=== PATIENT | female | born 1945 | race Caucasian/White ===

== ENCOUNTER 2025-07-24 10:09 | Outpatient (REF) | payer OTHER, MEDICAID, SELFPAY ==
--- OUTSIDE RECORDS SUMMARY | 2024-09-22 05:00 | XMS_ITS ---
[facility] Organization [facility] Address [address] [place] [address] Care Team Providers Care Rn Resource Nurse Name Role Phone TyroneAnayeli polo Primary Care Provider Unavailab Salma Cope Unavailable [phone] Allergies Allergen (clinical drug ingredient) Drug/Non Drug Allergy documented on EMR Reaction Allergy Type Onset Date Status Novocain Unknown Drug Allergy Active Penicillin Unknown Drug Allergy Active Medications Medication SIG (Take, Route, Frequency, Duration) Notes Start Date End Date Status amLODIPine Besylate Active hydroCHLOROthiazide 12.5 MG 1 tablet in the morning Orally Once a day Active oxyBUTYnin Chloride Active Aspirin Adult Low Strength Active Janumet XR 50-1000 MG 2 tablets with evening meal Orally Once a day; Duration: 30 day(s) Active Allergy Active Omeprazole Active Albuterol Sulfate Ac tive Fiber Active Zithromax Z-Anand 250 MG 2 tablets on the first day, then 1 tablet daily for 4 days Orally Once a day; Duration: 5 day(s) 04/16/2015 Not-Taking Januvia 25 MG 1 tablet Orally Once a day Not-Taking Prevacid Not-Taking metFORMIN HCl Not-Ta anthony Acetaminophen-Codeine 300-30 MG 1 tablet as needed Orally every 6 hrs; Duration: as needed 04/16/2015 Not-Taking Clindamycin HCl 300 MG 1 capsule Orally every 8 hrs; Duration: 5 day(s) 11/23/2017 Not-Taking CeleBREX Not-Taking Cyproheptadine HCl N ot-Taking Extra-Depth Diabetic Shoes with 3 Pair Custom heat-molded multi-density innersoles . for 1 year . Dx:sascha ty; Duration: . 04/03/2014 Not-Taking zzzExtra Depth Orthopedic Shoes (1 Pair) with Customized Heat Molded Multidensity Innersoles (3 Pair) . . . Dx: NIDDM (E11.9), Hammertoe Foot Deformity (M20.41,M20.42), Preulcerative Skin Lesion(s) (L85.1); Duration: . 09/17/2015 Not-Taking Extra Depth Orthopedic Shoes (1 Pair) with Customized Heat Molded Multidensity Innersoles (3 Pair) as directed Dx: NIDDM (E11.9), Hammertoe Foot Deformity (M20.41,M20.42), 02/23/2017 Not-Taking dilTIAZem HCl ER 240 MG 1 capsule Orally Not-Taking Extra Depth Orthopedic Shoes (1 Pair) with Customized Heat Molded Multidensity Innersoles (3 Pair) as directed Dx: NIDDM/Polyneuropathy (E11.42), Hammertoe Foot Deformity (M20.41,M20.42), Preulcerative Skin Lesion(s) (L85.1 04/27/2023 Not-Taking Vitamin D Not-Taking Extra-Depth Diabetic Shoes with 3 Pair Custom heat-molded multi-density innersoles Not-Taking Extra Depth Orthopedic Shoes (1 Pair) with Customized Heat Molded Multidensity Innersoles (3 Pair) as directed Dx: NIDDM/Polyneuropathy (E11.42), Hammertoe Foot Deformity (M20.41,M20.42), Preulcerative Skin Lesion(s) (L85.1 07/30/2021 Not-Taking Rosuvastatin Calcium 5 MG TAKE ONE TABLE T BY MOUTH EVERY DAY Oral; Duration: 30 Days Active Ezetimibe 10 MG 1 tablet Orally Once a day Not-Taking Cetirizine HCl 10 MG 1 tablet Orally Onc e a day Not-Taking Encounters Encounter Location Date Provider Diagnosis [facility] [place] [address] 09/22/2024 Salma Gómez Plan Of Treatment Next Appt Details Provider Name:Salma Gómez , 08/14/2025 09:00:00 AM, [place] [place] [address], [address], Provider Name:Salma Gómez , 10/23/2025 09:30:00 AM, [address] [facility], [place], [address], Progress Notes * Charanjit FIELDSHersonOB:1945 (79 yo F)Acc No.[id number]:09/22/2024 Progress Note Patient: Fiona OLIVEIRA Provider: Emmanuel Gómez DPM :1945 A ge:78 Y S ex:Female Date:09/22/2024 Address:[address] [place], [place] [id number] Pcp:Anayeil Chung Subjective: * Chief Complaints: * * Medical History: H ypertension, Diabetic, Aneurysm, Osteoporosis, Mumps, Measles, Hiatal hernia, Chicken pox, Cholesterol, Arthritis. * Medications: T aking Albuterol Sulfate , Taking Fiber , Taking Allergy , Taking Omeprazole , Taking amLODIPine Besylate , Taking hydroCHLOROthiazide 12.5 MG Tablet 1 tablet in the morning Orally Once a day , Taking oxyBUTYnin Chloride , Taking Aspirin Adult Low Strength , Taking Janumet XR 50-1000 MG Tablet Extended Release 24 Hour 2 tablets with evening meal Orally Once a day , Taking Rosuvastatin Calcium 5 MG Tablet TAKE ONE TABLET BY MOUTH EVERY DAY Oral , Not-Taking/PRN Ezetimibe 10 MG Tablet 1 tablet Orally Once a day , Not-Taking/PRN Cetirizine HCl 10 MG Tablet 1 tablet Orally Once a day , Not-Taking/PRN Vitamin D , Not-Taking/PRN dilTIAZem HCl ER 240 MG Capsule Extended Release 24 Hour 1 capsule Orally , Not-Taking/PRN Extra Depth Orthopedic Shoes (1 Pair) with Customized Heat Molded Multidensity Innersoles (3 Pair) as directed Dx: NIDDM/Polyneuropathy (E11.42), Hammertoe Foot Deformity (M20.41,M20.42), Preulcerative Skin Lesion(s) (L85.1 , Not-Taking/PRN Extra Depth Orthopedic Shoes (1 Pair) with Customized Heat Molded Multidensity Innersoles (3 Pair) as directed Dx: NIDDM/Polyneuropathy (E11.42), Hammertoe Foot Deformity (M20.41,M20.42), Preulcerative Skin Lesion(s) (L85.1 , Not-Taking/PRN Extra-Depth Diabetic Shoes with 3 Pair Custom heat-molded multi-density innersoles , Not-Taking/PRN Extra-Depth Diabetic Shoes with 3 Pair Custom heat-molded multi-density innersoles . . for 1 year . Dx:hallux limitus,hammertoes , Not-Taking/PRN zzzExtra Depth Orthopedic Shoes (1 Pair) with Customized Heat Molded Multidensity Innersoles (3 Pair) . . . . Dx: NIDDM (E11.9), Hammertoe Foot Deformity (M20.41,M20.42), Preulcerative Skin Lesion(s) (L85.1) , Not-Taking/PRN Extra Depth Orthopedic Shoes (1 Pair) with Customized Heat Molded Multidensity Innersoles (3 Pair) as directed Dx: NIDDM (E11.9), Hammertoe Foot Deformity (M20.41,M20.42), , Not-Taking/PRN CeleBREX , Not-Taking/PRN Cyproheptadine HCl , Not-Taking/PRN Prevacid , Not-Taking/PRN metFORMIN HCl , Not-Taking/PRN Januvia 25 MG Tablet 1 tablet Orally Once a day , Not-Taking/PRN Acetaminophen-Codeine 300-30 MG Tablet 1 tablet as needed Orally every 6 hrs , Not-Taking/PRN Clindamycin HCl 300 MG Capsule 1 capsule Orally every 8 hrs , Not-Taking/PRN Zithromax Z-Anand 250 MG Tablet 2 tablets on the first day, then 1 tablet daily for 4 days Orally Once a day * Allergies: N ovocain, Penicillin. Objective: * Vitals: Assessment: Plan: * Treatment: * Images: * The named appointment provid er may or may not be the originator of this progress note, and it is not deemed complete until electronically signed by the appointment provider. Sign off status: Pending * Provider: Emmanuel Gómez DPM Date: 11/23/2023 Generated for Shelli roberts/Estiven/Betsy on: 12:06 PM EDT
--- OUTSIDE RECORDS SUMMARY | 2024-11-17 09:15 | XMS_ITS ---
Author Organization [facility] Address [address] [place] [address] Care Team Providers Care Special Effects Person Name Role Phone Anayeli Chung Primary Care Provider Unavailab Salma Cope [phone] Encounters Encounter Location Date Provider Diagnosis [address] [address] 11/17/2024 Salma Gómez Plan Of Treatment Next Appt Details Provider Name:Salma A Rico , 08/14/2025 09:00:00 AM, [address] [place] [address] [place], [address], Provider Name:Salma A Rico , 10/23/2025 09:30:00 AM, [address] [place] [address] [place], [address], Progress Notes * Caio FIELDSOB:1945 (79 yo F)Acc No.[id number]:11/17/2024 Progress Note Patient: Fiona OLIVEIRA Provider: Emmanuel Gómez DPM :1945 A ge:78 Y S ex:Female Date:11/17/2024 Address:[address] [place], [place] [phone] Pcp:Anayeli Chung Subjective: * Chief Complaints: * * Medical History: Objective: * Vitals: Assessment: Plan: * Treatment: * Images: * The named appointment provid er may or may not be the originator of this progress note, and it is not deemed complete until electronically signed by the appointment provider. Sign off status: Pending * Provider: Emmanuel Gómez DPM Date: 0 11/17/2024 Generated for Shelli roberts/Estiven/Betsy on: 12:06 PM EDT
--- OUTSIDE RECORDS SUMMARY | 2025-07-24 12:06 | XMS_ITS | Encounter Summary ---
Author Organization [facility] Address [address] [place] [address] Care Team Providers Care Underground Distribution Engineer Name Role Phone Denzel Bettencourt MD Primary Care Provider [phone] Encounter Details Date Type Department Care Team (Late st Contact Info) Description 12/03/2024 Lab Requisition [facility] - Main Lab [address] [facility] [place] [address] Jared Villanueva MD [address] [place] [address], [phone] Nonrheumatic aortic (valve) stenosis Social History Tobacco Use Types Packs/Day Years Used Date Smoking Tobacco: Former Cigarettes Q uit: 12/30/2006 Smokeless Tobacco: Never Alcohol Use Standard Drinks/Week Comments No 0 (1 standard drink = 0.6 oz pur e alcohol) Comments Unknown Sex and Gender Information Value Date Recorded Sex Assigned at Female 12/19/2024 12:38 PM EST Legal Sex Female 3:26 AM EST Gender Identity Female 12/19/2024 12:38 PM EST Sexual Orientation Choose not to disclose 2024 12:38 PM EST documented as of this encounter Plan of Treatment Not on file documented as of this encounter Visit Diagnoses Diagnosis Nonrheumatic aortic (valve) stenosis documented in this encounter Additional Health Concerns Infection Onset Date Last Indicated Resolved Time Respiratory Rule-Out 12/19/2024 12/19/2024 025 11:46 AM EST COVID-19 Rule-Out 12/19/2024 12/19/2024 12/19/2024 11:46 AM EST documented as of this encounter Care Teams Underground Distribution Engineer Relationship Specialty Start Date End Date Denzel Bettencourt MD [address] [place] [phone] PCP - General Internal Medicine 06/12/22 documented as of this encounter
--- OUTSIDE RECORDS SUMMARY | 2025-07-24 12:06 | XMS_ITS | Patient Health Record ---
[facility] eliana Shelburn Address [address] [place] [address] Care Team Providers Care Core Checker Name Role Phone Anayeli Chung Primary Care Provider Unavailab Salma Cope Unavailable [phone] Allergies Allergen (clinical drug ingredient) Drug/Non Drug Allergy documented on EMR Reaction Allergy Type Onset Date Status Novocain Unknown Drug Allergy Active Penicillin Unknown Drug Allergy Active Reason For Referral Diagnosis 1 Achilles tendinitis, left leg (M76.62) Referring Provider First Name Anayeli Referring Provider Last Name Sheldon [facility] Referred Provider Salma Gómez Referred Address [address] [facility],[place],[address], Referred Provider Specialty Podiatry Referral Priority Routine Medications Medication SIG (Take, Route, Frequency, Duration) Notes Start Date End Date Status Cyproheptadine HCl N ot-Taking Janumet XR 50-1000 MG 2 tablets with evening meal Orally Once a day; Duration: 30 day(s) Active metFORMIN HCl Not-Ta anthony Aspirin Adult Low Strength Active Prevacid Not-Taking oxyBUTYnin Chloride Active Extra Depth Orthopedic Shoes (1 Pair) with Customized Heat Molded Multidensity Innersoles (3 Pair) Dx: NIDDM/Polyneuropathy (E11.42), Hammertoe Foot Deformity (M20.41,M20.42), Preulcerative Skin Lesion(s) (L85.1); Duration: 365 days 04/06/2025 Active Acetaminophen-Codeine 300-30 MG 1 tablet as needed Orally every 6 hrs; Duration: as needed 04/16/2015 Not-Taking Rosuvastatin Calcium 5 MG TAKE ONE TABLE T BY MOUTH EVERY DAY Oral; Duration: 30 Days Active Januvia 25 MG 1 tablet Orally Once a day Not-Taking Fiber Active Cetirizine HCl 10 MG 1 tablet Orally Onc e a day Not-Taking Zithromax Z-Anand 250 MG 2 tablets on the first day, then 1 tablet daily for 4 days Orally Once a day; Duration: 5 day(s) 04/16/2015 Not-Taking Albuterol Sulfate Ac tive Ezetimibe 10 MG 1 tablet Orally Once a day Not-Taking Clindamycin HCl 300 MG 1 capsule Orally every 8 hrs; Duration: 5 day(s) 11/23/2017 Not-Taking Omeprazole Active dilTIAZem HCl ER 240 MG 1 capsule Orally Not-Taking Allergy Active Vitamin D Not-Taking hydroCHLOROthiazide 12.5 MG 1 tablet in the morning Orally Once a day Active CeleBREX Not-Taking amLODIPine Besylate Active Extra-Depth Diabetic Shoes with 3 Pair Custom heat-molded multi-density innersoles . for 1 year . Dx:sascha ty; Duration: . 04/03/2014 Not-Taking Immunizations Vaccine Route Administration Date Status Comme nts Influenza Unknown 06/30/2016 Administered Influenza Unknown 07/23/2017 Administered Influenza Unknown 07/19/2018 Administered Influenza Unknown 07/21/2019 Administered Influenza Unknown 06/14/2020 Administered Influenza Unknown 06/30/2023 Administered Influenza Unknown 08/03/2024 Administered COVID-19 Pfizer BioNTech Vaccine Unknown 07/28/2021 Administered 12/11/20 1st injection 2nd injection 01/01/21 Social History Tobacco Use: Social History Observation Description Date Details (start date - stop date) Never Smoker NA - NA Tobacco use other than smoking: Question Answer Notes Are you an other tobacco user? No Tobacco Control (Standard) Question Answer Notes Tobacco use: Nonsmoker Additional Findings: Tobacco non-user Current no nsmoker AUDIT-C (Standard) Question Answer Notes Did you have a drink containing alcohol in the p ast year? No Points 0 Interpretation Negative Problems Problem Type SNOMED Code ICD Code Onset Dates Problem Status W/U Status Risk Notes Problem Acquired hammer toe of right foot (6145050858169183 ) Other hammer toe(s) (acquired), right foot (M20.41) Active confirmed Problem Acquired hammer toe of left foot (0045896915775710 ) Other hammer toe(s) (acquired), left foot (M20.42) Active confirmed Problem Polyneuropathy due to type 2 diabetes mellitus (874037064) Type 2 diabetes mellitus with diabetic polyneuropathy (E11.42) Active confirmed Vital Signs Blood pressure diastolic 70 mm Hg 06/12/2025 Height 5 ft 1 in in 06/12/2025 Blood pressure systolic 130 mm Hg 06/12/2025 Weight 158 lbs 06/12/2025 BMI 29.85 kg/m2 06/12/2025 Procedures Procedure Date Ordered Date Performed Result Body Sit e 93972-GLYFMFJ NAIL, 6 OR MORE 04/06/2025 N/A 74747-Izxk Destruction, 1-14 04/06/2025 N/A 27140-Gwsnzbwo Plate 04/06/2025 N/A 66962-KXDZ SKIN LESIONS, 2 TO 4 04/06/2025 N/A 84309-CLDSXRI NAIL, 6 OR MORE 06/12/2025 N/A 08960-Tbzz Destruction, 1-14 06/12/2025 N/A 16340-HHFX SKIN LESIONS, OVER 4 06/12/2025 N/A Encounters Encounter Location Date Provider Diagnosis [address] [address] 04/06/2025 Salma Black Type 2 diabetes davion itus with diabetic polyneuropathy E11.42 ; Other viral warts B07.8 ; Pain in left foot M79.672 ; Tinea unguium B35.1 ; Ingrown nail L60.0 ; Other hammer toe(s) (acquired), right foot M20.41 and Other hammer toe(s) (acquired), left foot M20.[address] [address] 06/12/2025 Salma Black Type 2 diabetes davion itus with diabetic polyneuropathy E11.42 ; Other viral warts B07.8 ; Tinea unguium B35.1 and Pain in left foot M79.[address] [address] 09/22/2024 Salmafam Gómez [address] [place] [address] 11/09/2024 Salma Wise Encounter Date Diagnosis (ICD Code) Assessment Notes Treatment Notes Treatment Clinical Notes Section Notes 04/06/2025 Other viral warts (ICD-10 - B07.8) 04/06/2025 Type 2 diabetes mellitus with diabetic polyneuropathy (ICD-10 - E11.42) 06/12/2025 Other viral warts (ICD-10 - B07.8) 06/12/2025 Type 2 diabetes mellitus with diabetic polyneuropathy (ICD-10 - E11.42) 04/06/2025 Pain in left foot (ICD-10 - M79.672) 06/12/2025 Tinea unguium (ICD-10 - B35.1) 06/12/2025 Pain in left foot (ICD-10 - M79.672) 04/06/2025 Tinea unguium (ICD-10 - B35.1) 04/06/2025 Ingrown nail (ICD-10 - L60.0) 04/06/2025 Other hammer toe(s) (acquired), right foot (ICD-10 - M20.41) Patient Educated with: DIABETIC FOOT CARE INSTRUCTIONS. pdf (DIABETIC FOOT CARE INSTRUCTIONS. pdf) 04/06/2025 Other hammer toe(s) (acquired), left foot (ICD-10 - M20.42) Plan Of Treatment Pending Test Test Name Order Date 68466-PGXYTIE NAIL, 6 OR MORE 07/08/2011 84113-PDXOUVT NAIL, 6 OR MORE 09/28/2011 31531-RIBTUZC NAIL, 6 OR MORE 12/21/2011 42043-QSXNMKF NAIL, 6 OR MORE 03/28/2012 91250-PRNWVFZ NAIL, 6 OR MORE 06/27/2012 71884-KCGWBXX NAIL, 6 OR MORE 09/19/2012 58906-NUKTLLV NAIL, 6 OR MORE 01/09/2013 36797-BBQJEHL NAIL, 6 OR MORE 04/04/2013 60926-XKGPDWL NAIL, 6 OR MORE 06/27/2013 52988-GTGOHEN NAIL, 6 OR MORE 09/05/2013 59666-CNJIZOD NAIL, 6 OR MORE 11/14/2013 65892-DHPBVDY NAIL, 6 OR MORE 01/23/2014 19443-VCSVBLY NAIL, 6 OR MORE 04/03/2014 79700-RGXTSTW NAIL, 6 OR MORE 06/12/2014 52048-OZONGFS NAIL, 6 OR MORE 08/28/2014 09248-JFAENIM NAIL, 6 OR MORE 11/06/2014 55620-ZWGQRYI NAIL, 6 OR MORE 01/15/2015 73088-DLDECPL NAIL, 6 OR MORE 04/16/2015 74770-WOYDXUY NAIL, 6 OR MORE 06/18/2015 10408-WPLBSKX NAIL, 6 OR MORE 09/17/2015 04978-LVGHLGM NAIL, 6 OR MORE 12/17/2015 24649-UBZXMVT NAIL, 6 OR MORE 12/02/2022 29654-JBIRWJW NAIL, 6 OR MORE 02/10/2023 89915-TDENKOO NAIL, 6 OR MORE 04/27/2023 23632-UKIJHYP NAIL, 6 OR MORE 07/14/2023 17751-ZVVCNMS NAIL, 6 OR MORE 09/21/2023 84534-SLTRDVR NAIL, 6 OR MORE 12/07/2023 67888-FWMMCEN NAIL, 6 OR MORE 02/16/2024 61651-XMIRUUF NAIL, 6 OR MORE 05/17/2024 12291-IKKVROJ NAIL, 6 OR MORE 07/19/2024 80536-HLKGYJW NAIL, 6 OR MORE 04/06/2025 26165-RUGLHVP NAIL, 6 OR MORE 06/12/2025 06547-OZUSISR NAIL, 1-5 09/22/2022 34192-WCSXEAB NAIL, 1-5 03/13/2022 96490-ABLOKQO NAIL, 1-5 07/22/2022 77196-HITNWHN NAIL, 1-5 03/11/2021 47476-STUYXBT NAIL, 1-5 05/21/2021 46543-NTCGDWL NAIL, 1-5 07/30/2021 76844-YSWCUKS NAIL, 1-5 10/14/2021 36546-NDZPPIR NAIL, 1-5 01/06/2022 46529-VFXCQAE NAIL, 1-5 09/02/2016 97337-LKUDEOI NAIL, 1-5 11/24/2016 03184-YOCNMKF NAIL, 1-5 05/25/2017 36758-ISJVFOW NAIL, 1-5 08/24/2017 41277-CSLANMI NAIL, 1-5 02/23/2017 28536-EYFMGZG NAIL, 10-2211/23/2017 90644-UACTJNM NAIL, 10-2202/25/2018 07478-JTVWNDU NAIL, 10-2205/06/2018 80565-VDJLSWK NAIL, 10-2211/29/2018 27973-WSGAHGF NAIL, 10-2209/06/2018 04053-UNQVRAE NAIL, 10-2202/28/2019 94137-FHNMWLL NAIL, 10-2209/01/2019 50589-UDUCVPX NAIL, 10-2212/05/2019 65856-SMSPUOB NAIL, 10-2206/02/2019 69039-FFXZTGH NAIL, 10-2203/06/2020 80671-XKKVPLE NAIL, 10-2206/07/2020 77002-XTBURVF NAIL, 10-2208/14/2020 99826-VKYQDAR NAIL, 10-2210/22/2020 93870-PQVMBGB NAIL, 10-2201/07/2021 27757-VIYEJZO NAIL, 10-2203/12/2016 60346-SEYHWXR NAIL, 10-2206/11/2016 13603-Yvgg Destruction, 10-3101/09/2013 11659-Pipg Destruction, 10-3109/19/2012 45998-Bttb Destruction, 10-3111/14/2013 22119-Bjct Destruction, 10-3109/05/2013 36945-Ecox Destruction, 10-3106/27/2013 97442-Fotd Destruction, 10-3104/04/2013 33793-Okzn Destruction, 10-3106/11/2016 73800-Gflo Destruction, 10-3109/17/2015 10304-Sfrg Destruction, 10-3112/17/2015 97848-Iins Destruction, 10-3106/18/2015 77455-Gonj Destruction, 10-3104/16/2015 55419-Hceq Destruction, 10-3101/15/2015 23386-Wryy Destruction, 10-3111/06/2014 15422-Lfaw Destruction, 10-3108/28/2014 25706-Utps Destruction, 10-3106/12/2014 83017-Ltyx Destruction, 10-3104/03/2014 48612-Nyvl Destruction, 10-3101/23/2014 02334-Uugt Destruction, 10-3101/07/2021 80044-Utmo Destruction, 10-3110/22/2020 31473-Vihr Destruction, 10-3108/14/2020 46179-Isdp Destruction, 10-3106/07/2020 62459-Bmhv Destruction, 10-3103/06/2020 95750-Vzcz Destruction, 10-3106/02/2019 66998-Rvur Destruction, 10-3112/05/2019 23124-Cxoh Destruction, 10-3109/01/2019 03211-Bzjg Destruction, 10-3102/28/2019 17828-Vjzw Destruction, 10-3109/06/2018 57719-Clyz Destruction, 10-3111/29/2018 40093-Gnvc Destruction, 10-3105/06/2018 26345-Deaz Destruction, 10-3101/04/2018 95498-Uyht Destruction, 10-3102/25/2018 41472-Jkwh Destruction, 10-3111/23/2017 89207-Iboc Destruction, 10-3102/23/2017 35519-Olmc Destruction, 10-3108/24/2017 34435-Jcin Destruction, 10-3105/25/2017 81464-Wsle Destruction, 10-3111/24/2016 71086-Aasv Destruction, 10-3109/02/2016 88824-Mqpn Destruction, 10-3103/12/2016 18464-Hbqt Destruction, 10-3101/06/2022 68553-Xjnz Destruction, 10-3105/21/2021 09306-Ofbb Destruction, 10-3110/14/2021 46436-Thui Destruction, 10-3107/30/2021 29741-Hdry Destruction, 10-3103/11/2021 27571-Rmbj Destruction, 10-3107/22/2022 48915-Ahgb Destruction, 10-3103/13/2022 60263-Ofdj Destruction, 10-3109/22/2022 50549-Aqjd Destruction, 10-3112/02/2022 92344-Zedk Destruction, 10-3106/12/2025 08941-Xdpv Destruction, 10-3104/06/2025 24769-Epuu Destruction, 1-07/19/2024 07704-Lkgw Destruction, 10-3102/16/2024 86726-Gkhr Destruction, 10-3105/17/2024 46169-Llwd Destruction, 10-3109/21/2023 51929-Oujf Destruction, 10-3112/07/2023 69446-Qcpx Destruction, 10-3104/27/2023 44648-Melx Destruction, 10-3107/14/2023 40098-Xkop Destruction, 10-3102/10/2023 26793-Cunkihuz Plate 04/27/2023 08221-Srxejnsf Plate 07/19/2024 99958-Mijjizsq Plate 04/06/2025 58242-Cokturjd Plate 03/13/2022 30615-Rohtgtry Plate 09/02/2016 39332-Elqxxviz Plate 11/24/2016 63664-Jxkybqrm Plate 02/23/2017 53941-Bvayoafw Plate 08/24/2017 99332-Icudbuiu Plate 11/29/2018 11327-Tmibiswl Plate 09/01/2019 63296-Ntcskvzs Plate 03/06/2020 41228-Nvdkaity Plate 06/07/2020 13779-Mcddwrsc Plate 10/22/2020 62534-Fzhavjts Plate 03/11/2021 33051-Cvpmlqkk Plate 04/03/2014 46981-Tpfkmere Plate 06/12/2014 87510-Soujiykw Plate 08/28/2014 91407-Lgetxhwh Plate 01/23/2014 44536-Znmyuehh Plate 11/06/2014 21271-Npxgtweu Plate 01/15/2015 22635-Bjbgwvrl Plate 04/16/2015 37612-Rzietkwx Plate 06/18/2015 63934-Cibishvq Plate 12/17/2015 08943-Egynwrci Plate 06/11/2016 08376-Anptwrlo Plate 04/04/2013 33935-Kuedophl Plate 06/27/2013 92272-Lgvvzgdd Plate 09/05/2013 70753-Ocbuegkj Plate 11/14/2013 04605-Zjtsyncf Plate 09/19/2012 40980-Jtkwzqem Plate 01/09/2013 16366-Bpzwezoq Plate 07/08/2011 38767-Ckbzocsn Plate 03/28/2012 84234-Cceixucl Plate 12/21/2011 91647-Ngzxzuoq Plate Each Additional 16377-Moxsglxl Plate Each Additional 07200-Qkmvphrn Plate Each Additional 31808-Ygwboips Plate Each Additional 07/2013 89837-Axptpiib Plate Each Additional 16386-Rrvpbxtk Plate Each Additional 10/2014 94596-Kslfzgoa Plate Each Additional 76371-OUS 04/16/2015 41968-IAB 11/23/2017 73522- Debride <25 sq cm 01/04/2018 49180- Debride <25 sq cm 05/14/2015 41291-AEZOOTW SKIN/TISSUE 04/30/2015 88317-PMTPSUF SKIN/TISSUE 12/14/2017 22771-GKSG SKIN LESIONS, OVER 4 02/11/20 04599-MXKB SKIN LESIONS, OVER 4 06/12/20 06114-HGQX SKIN LESIONS, OVER 4 04/27/20 04431-PZYU SKIN LESIONS, 2 TO 4 07/14/20 73304-MMVA SKIN LESIONS, 2 TO 4 02/16/20 33944-ZKSW SKIN LESIONS, 2 TO 4 12/07/19 84479-MOBR SKIN LESIONS, 2 TO 4 09/21/20 83943-AYDN SKIN LESIONS, 2 TO 4 04/06/20 97234-DHZC SKIN LESIONS, 2 TO 4 07/19/20 31488-DNFZ SKIN LESIONS, 2 TO 4 05/17/20 24 14425-ZPUZ SKIN LESIONS, 2 TO 4 12/02/19 23 66819-KYES SKIN LESIONS, 2 TO 4 07/22/20 59483-DTWN SKIN LESIONS, 2 TO 4 09/22/20 51032-KSWT SKIN LESIONS, 2 TO 4 05/21/20 63375-GPHN SKIN LESIONS, 2 TO 4 10/14/20 99001-TEFV SKIN LESIONS, 2 TO 4 01/07/20 73112-PCUU SKIN LESIONS, 2 TO 4 07/30/20 49228-FEMD SKIN LESIONS, 2 TO 4 03/13/20 57516-YSGO SKIN LESIONS, 2 TO 4 11/23/19 73325-MVML SKIN LESIONS, 2 TO 4 01/08/20 31400-QSWV SKIN LESIONS, 2 TO 4 08/14/20 71683-YGZJ SKIN LESIONS, 2 TO 4 03/06/20 C4236-AHNDJNTD DYSTROPHIC NAILS ANY # Y2167-HACWHPWQ DYSTROPHIC NAILS ANY # E7004-HEFSBYXI DYSTROPHIC NAILS ANY # O4626-LGJSFJKC DYSTROPHIC NAILS ANY # H2595-CUIQWFZY DYSTROPHIC NAILS ANY # Q7737-PEFPTJKY DYSTROPHIC NAILS ANY # A0046-OYLKEAEQ DYSTROPHIC NAILS ANY # R7238-TBCLIATF DYSTROPHIC NAILS ANY # O1501-TDABXIXO DYSTROPHIC NAILS ANY # R3622-RBMKOZKA DYSTROPHIC NAILS ANY # W8272-NZZBKHEY DYSTROPHIC NAILS ANY # S6993-DPYISZIC DYSTROPHIC NAILS ANY # G6106-MZYJHOOY DYSTROPHIC NAILS ANY # D2351-CMZGRESW DYSTROPHIC NAILS ANY # C2441-HIAPYHVN DYSTROPHIC NAILS ANY # K3109-RHEXTXXA DYSTROPHIC NAILS ANY # D8262-FGXLSOGB DYSTROPHIC NAILS ANY # X0100-BPPDKYVB DYSTROPHIC NAILS ANY # M9463-LLLHMOMK DYSTROPHIC NAILS ANY # G1420-HSZPVWKL DYSTROPHIC NAILS ANY # X8203-ZFGBBJBG DYSTROPHIC NAILS ANY # W3426-ALHOBART DYSTROPHIC NAILS ANY # R0059-YZLPBPOK DYSTROPHIC NAILS ANY # H0369-THUIZYVS DYSTROPHIC NAILS ANY # Next Appt Details Provider Name:Salma Lemus Rico , 08/14/2025 09:00:00 AM, [address] [place], [address], Provider Name:Salma A Rico , 10/23/2025 09:30:00 AM, [address] [place], [address], Insurance Providers Payer Name Payer Address Payer Phone Subscriber Number Group Number Insured Name Patient Relationship to Insured Coverage Start Date Coverage End Date [employer] Preferred [address] [place] [phone] [phone] [id number] Fiona Martines Self - patient is the insured Medical (General) History Medical History History ICD Code hypertension diabetic aneurysm osteoporosis mumps measles Hiatal hernia chicken pox Cholesterol Arthritis Hallux valgus (acquired), right foot M20 .11 Hallux valgus (acquired), left foot M20. 12 Neuropathy G62.9 Surgical History Surgery Date(Month/Year) hysterectomy 1985 Open Heart 11/11 Hospitalization History Reason Date(Month/Year) heart sx 11/11 Bernice, checked veins & arteries 03/2024 Dr. Sonia Cazares Right knee / right r ib 02/04/2017
--- OUTSIDE RECORDS SUMMARY | 2025-07-24 12:06 | XMS_ITS | Clinical Summary ---
Author Organization [facility] [address] Address [address] [place] [address] Phone Care Team Providers Care Radiologic Therapist Name Role Phone Denzel Bettencourt MD Primary Care Provider [phone] Allergies Active Allergy Reactions Criticality Noted Date Comments Penicillins 12/30/2018 itchy Medications albuterol HFA (PROAIR HFA ; PROVENTIL HFA ; VENTOLIN HFA) 90 mcg/actuation inhaler Inhale 2 Puffs into the lungs every 4 hours as needed. Active SITagliptin-met FORMIN (Janumet) 50-1,000 mg per tablet Take 1 Tablet by mouth daily. Active aspirin 81 mg chewable tablet Chew 1 tablet (81 mg total) 1 (one) time each day. Active acetaminophen (TYLENOL) 325 mg tablet Take 1 tablet (325 mg total) by mouth every 6 (six) hours if needed for mild pain. Active metoprolol succinate (TOPROL-XL) 50 mg 24 hr tablet Take 1.5 tablets (75 mg total) by mouth 1 (one) time each day. Do not crush or chew. 135 tablet 2 01/22/2025 Active omeprazole (PriLOSEC) [address] capsule Take 1 capsule (20 mg total) by mouth 1 (one) time each day. Do not crush or chew. Active guaiFENesin (MUCINEX) 600 mg 12 hr tablet Take 2 tablets (1,200 mg total) by mouth 2 (two) times a day. Do not crush, chew, or split. Active rosuvastatin (CRESTOR) 10 mg tablet Take 1 tablet (10 mg total) by mouth 1 (one) time each day. 90 each 3 02/26/2025 6 Active amLODIPine (NORVASC) 5 mg tablet Take 1 tablet (5 mg total) by mouth 1 (one) time each day. 90 each 3 02/26/2025 6 Active Active Problems Problem Noted Date Diagnosed Date Brain aneurysm 10/02/2024 Type 2 diabetes mellitus ([facility] V24, [facility] V 28) 10/02/2024 Coronary artery disease 07/10/2024 Overview (10/02/2024): Last Assessment & Plan: Nonobstructive coronary disease noted on recent angiogram 04/10/2024. She has continued shortness of breath with exertion that is unchanged from previous and is likely secondary to her valvular dysfunction; this will be addressed further during aortic valve replacement. We will continue with cardioprotective medical therapies for coronary artery disease including amlodipine, rosuvastatin, and daily ASA. I have reviewed with the patient the importance of a heart healthy lifestyle which includes eating a low-fat low-salt diet, getting regular exercise, maintaining a healthy weight, not smoking, and following up with routine medical care. Patient advised to seek emergency medical attention by calling 911 if they were to develop severe dyspnea, chest pain that did not resolve with rest, or if they were to faint. Assessment & Plan (12/13/2024 1:18 PM EST): Patient with history of coronary artery disease, angiogram completed on 04/10 showing moderate diffuse disease. She reports ongoing dyspnea on exertion. She also reports 2 episodes of waking up at night with cold sweats. She denies chest discomfort. She is anxious about the symptoms she has had in the middle of the night. Will further assess with a nuclear stress test. Patient to continue on aspirin, statin and amlodipine. Patient unsure if she is taking metoprolol, will verify with patient when she gets home, as she was discharged from the hospital on this medication recently. Patient advised to seek emergency medical attention by calling 911 if they were to develop severe dyspnea, chest pain that did not resolve with rest or nitroglycerin, or if they were to faint. Orders: ECG 12 lead Nuclear stress test with myocardial perfusion; Future Transthoracic echocardiogram (TTE) complete with PRN contrast, bubble, strain, and 3D order panel; Future perflutren lipid microsphere (DEFINITY) 1.3 mL in sodium chloride 0.9% 8.7 mL injection Daytime sleepiness 07/10/2024 Mixed hyperlipidemia 07/10/2024 Overview (10/02/2024): Last Assessment & Plan: Given the patient's history of coronary artery disease and diabetes, LDL goal for this patient is less than 55. Her most recent lipid panel completed 03/07/2024 reveals an LDL of 180 which is above goal on rosuvastatin 5 mg. We discussed increasing statin therapy for risk reduction purposes; she is willing to increase to rosuvastatin 10 mg once daily today. Will plan to recheck a lipid panel in 3 months and readdress as needed. Assessment & Plan (12/13/2024 1:18 PM EST): Patient continues on rosuvastatin, will update lipid panel to assess control. I have reviewed with the patient the importance of a heart healthy lifestyle which includes eating a low-fat low-salt diet, getting regular exercise, maintaining a healthy weight, not smoking, and following up with routine medical care. Orders: Lipid panel with reflex to direct LDL; Future Snoring 07/10/2024 Overview (10/02/2024): Last Assessment & Plan: The patient does report a history of snoring as well as daytime sleepiness causing her to nap frequently, which may be contributed to in part by her valvular disease. She is willing to undergo a sleep study for further evaluation of possible sleep apnea; we will continue to readdress this as indicated. We discussed the potential long-term implications of untreated sleep apnea as a relates to her cardiovascular health. PAD (peripheral artery disease) ([facility] V24) Overview (10/02/2024): Last Assessment & Plan: The patient reports a history of bilateral carotid artery stenosis; she is unsure when the last time she had a carotid duplex was. On exam, there is right greater than left carotid bruit versus transmission of aortic murmur. For further evaluation, we will update carotid duplex. Blood pressure is well-controlled; continue statin therapy. Dyspnea on exertion 03/31/2024 Overview (10/02/2024): Last Assessment & Plan: May be multifactorial related to underlying coronary artery disease, valvular disease, and previous smoking history; we will continue to readdress this after aortic valve replacement has been completed. Assessment & Plan (12/13/2024 1:18 PM EST): Nuclear stress test ordered as outlined above and CAD plan. Patient is a former smoker, has had nonconcerning PFTs in the past yet will further evaluate with referral to pulmonology. Will re-assess CBC. Orders: Ambulatory referral to Pulmonology; Future Nonrheumatic mitral valve stenosis 03/31/2024 Overview (10/02/2024): Last Assessment & Plan: Most recent echocardiogram notes is moderate mitral stenosis with a mean gradient of 6 mmHg; we will continue to reevaluate this status post aortic valve replacement. Aortic stenosis 03/29/2024 Overview (10/02/2024): Last Assessment & Plan: NYHA class II-III symptoms; severe aortic stenosis noted on recent cardiac catheterization completed 04/10/2024. She has been seen in consultation by Dr. Crow for possible TAVR. She is awaiting surgical aortic valve replacement consultation as well as CT TAVR; she states that she has not heard regarding either of these yet. She is hoping to have her aortic valve replacement completed by the first week in August; for personal reasons which she is unwilling to disclose further, she states if it is not done by this time she will wait until after the first of the year. I ensured her that I would follow-up regarding the progression of this process; I will reach out to the scheduling coordinators regarding this and notify Dr. Crow of this as well. She offers no symptoms concerning for worsening valvular dysfunction; we discussed signs and symptoms for which she should seek emergent medical attention and she verbalizes understanding of this. Chest discomfort 03/29/2024 Valvular heart disease 03/29/2024 Dilated pore of Vitaliy 02/06/2019 Resolved Problems Problem Noted Date Diagnosed Date Resolved Date Hypertension 03/31/2024 10/02/2024 Overview (10/02/2024): Last Assessment & Plan: Blood pressure is well-controlled on current medical therapy; continue amlodipine and hydrochlorothiazide. Most recent labs completed 04/05/2024 shows stable renal function and electrolytes. Encounters Date Type Department Care Team Description 05/21/2025 Telephone [facility] - [address] [place] [address] Ike Munoz MD 04/23/2025 Lab Requisition [facility] - Main Lab [address] [facility] [place] [address] Anayeli Chung MD Type 2 diabetes mellitus without complications (CMS/HCC V24, CMS/HCC V28); Essential (primary) hypertension; Pure hypercholesterolemia, unspecified from Last 3 Months Surgical History Surgery Date Site/Laterality Comments OTHER SURGICAL HISTORY PROCEDURE: BRAIN SURGERY USING COMPUTER OTHER SURGICAL HISTORY PROCEDURE: HI TOTAL ABDOMINAL HYSTERECT W/WO RMVL TUBE OVARY; COMMENT: at age 41 OTHER SURGICAL HISTORY PROCEDURE: HI DILATION & CURETTAGE DX&/THER NONOBSTETRIC HYSTERECTOMY Medical History Medical History Date Comments Brain aneurysm DX:Brain aneurys m Type 2 diabetes mellitus (CM S/HCC V24, CMS/HCC V28) DX:Type 2 diabetes mellitus (HCC) Family History Medical History Relation Name Comments Coronary artery disease Father Diabetes Mother Relation Name Status Comments Father Mother Social History Tobacco Use Types Packs/Day Years Used Date Smoking Tobacco: Former Cigarettes Q uit: 12/30/2006 Smokeless Tobacco: Never Alcohol Use Standard Drinks/Week Comments No 0 (1 standard drink = 0.6 oz pur e alcohol) Comments No Sex and Gender Information Value Date Recorded Sex Assigned at Female 12/19/2024 12:38 PM EST Legal Sex Female 3:26 AM EST Gender Identity Female 12/19/2024 12:38 PM EST Sexual Orientation Choose not to disclose 2024 12:38 PM EST Obstetrics History Last Filed Vital Signs Vital Sign Reading Time Taken Comments Blood Pressure 124/60 02/26/2025 10:32 AM EDT Pulse 73 02/26/2025 10:32 AM EDT Temperature 36.4 C (97.5 F) 12/19/2024 10:34 AM EST Respiratory Rate 18 12/19/2024 10:34 AM EST Oxygen Saturation 93% 02/26/2025 10:32 AM EDT Inhaled Oxygen Concentration - - Weight 62.6 kg (138 lb) 03/02/2025 7:48 AM EDT Height 154.9 cm (5' 1 ) 03/02/2025 7:48 AM EDT Body Mass Index 26.07 03/02/2025 7:48 AM EDT Plan of Treatment Health Maintenance Due Date Last Done Comments Diabetes: Annual Foot Exam 1955 Diabetes: Annual Retina Eye Exam 1955 DTaP,Tdap,and Td Vaccines (1 - Tdap) 12/24/1963 Pneumococcal Vaccine: 50+ Years (1 of 2 - PCV) 12/24/1963 Falls Risk Assessment 09/20/2022 Medicare Annual Wellness Visit 09/20/2022 Social Influencers of Health Screening 09/20/2022 Depression Screening 10/18/2024 COVID-19 Vaccine (7 - Pfizer risk 2023- season) 2025 07/03/2024, 07/10/2023, 05/26/2022, Additional history exists Influenza Vaccine (#1) 2025 , 06/26/2021, 06/10/2020, Additional history exists Zoster Vaccines (2 of 2) 06/19/2025 04/24/2025 Diabetes: Blood Sugar Control Test (HGBA1C) 10/27/2025 04/26/2025, 12/14/2024 Diabetes: Annual Urine Albumin-Creatinine Ratio (uACR) 04/26/2026 04/26/2025 Diabetes: Annual GFR (Glomerular Filtration Rate) 04/26/2026 04/26/2025, 02/27/2025, 12/19/2024, Additional history exists Hypertension/CHF/CAD Annual BMP Blood Test 04/26/2026 04/26/2025, 02/27/2025, 12/19/2024, Additional history exists Osteoporosis Screening (Bone Density Screening) 06/30/2029 06/30/2019 Cholesterol Screening (Lipid Panel) 04/26/2030 04/26/2025, 02/27/2025, 12/14/2024, Additional history exists RSV Immunization Adult Patients Completed 04/24/2025 HIB Vaccines Aged Out No longer eligi ble based on patient's age to complete this topic HPV Vaccines Aged Out No longer eligi ble based on patient's age to complete this topic Hepatitis A Vaccines Aged Out No long er eligible based on patient's age to complete this topic Hepatitis B Vaccines Aged Out No long er eligible based on patient's age to complete this topic IPV Vaccines Aged Out No longer eligi ble based on patient's age to complete this topic MMR Vaccines Aged Out No longer eligi ble based on patient's age to complete this topic Meningococcal ACWY Vaccine Aged Out N o longer eligible based on patient's age to complete this topic Meningococcal B Vaccine Aged Out No l onger eligible based on patient's age to complete this topic RSV Immunization Patients Under 20 months Aged Out No longer eligible based on patient's age to complete this topic Varicella Vaccines Aged Out No longer eligible based on patient's age to complete this topic Procedures Procedure Name Priority Date/Time Associated Diagnosis Comments CBC WITH AUTO DIFFERENTIAL Routine 04/26/2025 10:51 AM EDT Diabetes mellitus ([facility]/HCC V24, CMS/[facility] V28) Hypercholesterolem ia Essential hypertension, malignant HEMOGLOBIN A1C Routine 04/26/2025 10:51 AM EDT Diabetes mellitus (CMS/HCC V24, CMS/HCC V28) Hypercholesterolem ia Essential hypertension, malignant MICROALBUMIN CREATININE URINE RATIO Routine 04/26/2025 10:51 AM EDT Diabetes mellitus (CMS/HCC V24, CMS/HCC V28) Hypercholesterolem ia Essential hypertension, malignant LIPID PANEL WITH REFLEX TO DIRECT LDL Routine 04/26/2025 10:51 AM EDT Diabetes mellitus (CMS/HCC V24, CMS/HCC V28) Hypercholesterolem ia Essential hypertension, malignant CBC AND DIFFERENTIAL Routine 04/26/2025 10:51 AM EDT Diabetes mellitus (CMS/HCC V24, CMS/HCC V28) Hypercholesterolem ia Essential hypertension, malignant COMPREHENSIVE METABOLIC PANEL Routine 04/26/2025 10:51 AM EDT Diabetes mellitus (CMS/HCC V24, CMS/[facility] V28) Hypercholesterolem ia Essential hypertension, malignant [facility] DEXA AXIAL SKELETON Routine 06/30/2019 10:15 AM EDT Other specified disorders of bone density and structure, other site from Last 3 Months or Most Recently Relevant to Health Maintenance Results * (ABNORMAL) Lipid panel with reflex to direct LDL (04/26/2025 10:51 AM EDT) Cholesterol 148 0 - 200 mg/dL LAB CHEMISTRY METHOD 04/26/2025 2:13 PM EDT [facility] Triglycerides 158(H) 0 - 150 mg/dL LAB CHEMISTRY METHOD 04/26/2025 2:13 PM EDT [facility] HDL 58 >=40 mg/dL LAB CHEMISTRY METHOD 04/26/2025 2:13 PM EDT [facility] LDL Calculated 58 0 - 100 mg/dL LAB CHEMISTRY METHOD 04/26/2025 2:13 PM EDT [facility] VLDL Cholesterol Jalil 31.6 mg/dL LAB CHEMISTRY METHOD 04/26/2025 2:13 PM EDT [facility] Non HDL Chol. (LDL+VLDL) 90 <145 mg/dL LAB CHEMISTRY METHOD 04/26/2025 2:13 PM EDT [facility] Chol/HDL Ratio 2.6 0.0 - 4.4 LAB CHEMISTRY METHOD 04/26/2025 2:13 PM EDT [facility] Blood Venous blood specimen / Unknown Venipuncture / Unknown 04/26/2025 10:51 AM EDT 04/26/2025 11:40 AM EDT us Anayeli Chung MD LAB BLOOD ORDERABLES Final Re sult [facility] [address] [place] [address], [place] [phone] * (ABNORMAL) CBC auto differential (04/26/2025 10:51 AM EDT) [facility] WBC 9.8 4.8 - 10.8 K/mcL LAB HEMETOLOGY METHOD 04/26/2025 12:20 PM [facility] RBC 4.50 3.80 - 4.80 M/mcL LAB HEMETOLOGY METHOD 04/26/2025 12:20 PM [facility] Hemoglobin 11.1(L) 11.5 - 16.0 g/dL LAB HEMETOLOGY METHOD 04/26/2025 12:20 PM [facility] Hematocrit 36.7 35.0 - 47.0 % LAB HEMETOLOGY METHOD 04/26/2025 12:20 PM [facility] MCV 82.3 79.0 - 98.0 FL LAB HEMETOLOGY METHOD 04/26/2025 12:20 PM [facility] MCH 24.9(L) 27.0 - 32.0 pcg LAB HEMETOLOGY METHOD 04/26/2025 12:20 PM [facility] MCHC 30.2(L) 32.0 - 37.0 g/dL LAB HEMETOLOGY METHOD 04/26/2025 12:20 PM [facility] RDW 18.0(H) 11.0 - 15.0 % LAB HEMETOLOGY METHOD 04/26/2025 12:20 PM [facility] Platelets 342 130 - 400 K/mcL LAB HEMETOLOGY METHOD 04/26/2025 12:20 PM [facility] MPV 11.1(H) 7.0 - 11.0 FL LAB HEMETOLOGY METHOD 04/26/2025 12:20 PM [facility] NRBC 0.0 <1.0 % LAB HEMETOLOGY METHOD 04/26/2025 12:20 PM [facility] NRBC Absolute 0.00 <0.10 K/mcL LAB HEMETOLOGY [facility]25 12[facility] Neutrophils Relative 62.7 % LAB HEMETOLOGY METHOD 04/26/2025 12:20 PM [facility] Lymphocytes Relative 25.9 % LAB HEMETOLOGY METHOD 04/26/2025 12:20 PM [facility] Monocytes Relative 7.5 % LAB HEMETOLOGY METHOD 04/26/2025 12:20 PM [facility] Eosinophils Relative 3.1 % LAB HEMETOLOGY METHOD 04/26/2025 12:20 PM [facility] Basophils Relative 0.5 % LAB HEMETOLOGY METHOD 04/26/2025 12:20 PM [facility] Immature Granulocytes Relative 0.3 % LAB HEMETOLOGY METHOD 04/26/2025 12:20 PM [facility] Neutrophils Absolute 6.16 1.50 - 7.00 K/mcL LAB HEMETOLOGY METHOD 04/26/2025 12:20 PM [facility] Lymphocytes Absolute 2.55 1.00 - 5.00 K/mcL LAB HEMETOLOGY METHOD 04/26/2025 12:20 PM [facility] Monocytes Absolute 0.74 0.20 - 1.00 K/mcL LAB HEMETOLOGY METHOD 04/26/2025 12:20 PM [facility] Eosinophils Absolute 0.30 0.00 - 0.50 K/mcL LAB HEMETOLOGY METHOD 04/26/2025 12:20 PM [facility] Basophils Absolute 0.05 0.00 - 0.20 K/mcL LAB HEMETOLOGY METHOD 04/26/2025 12:20 PM [facility] Immature Granulocytes Absolute 0.03 0.00 - 0.03 K/mcL LAB HEMETOLOGY METHOD 04/26/2025 12:20 PM EDT [facility] Blood Venous blood specimen / Unknown Venipuncture / Unknown 04/26/2025 10:51 AM EDT 04/26/2025 11:42 AM EDT us Anayeli Chung MD LAB BLOOD ORDERABLES Final Re sult Performing Organization Address City/[facility]/ZIP Co de Phone Number [facility] [address] [place] [address], [place] [phone] * (ABNORMAL) Microalbumin creatinine urine ratio (04/26/2025 10:51 AM EDT) Creatinine, Urine 230.0 mg/dL LAB CHEMISTRY METHOD 04/26/2025 2:03 PM EDT [facility] Microalb, Ur 119.0(H) 0.0 - 29.0 mg/L LAB CHEMISTRY METHOD 04/26/2025 2:03 PM EDT [facility] Microalb/Crea t Ratio 52(H) <30 mg/g creat LAB CHEMISTRY METHOD 04/26/2025 2:03 PM EDT [facility] Urine Urine specimen obtained by clean catch procedure / Unknown Non-blood Collection / Unknown 04/26/2025 10:51 AM EDT 04/26/2025 11:41 AM EDT us Anayeli Chung MD LAB URINE ORDERABLES Final Re sult [facility] [address] [place] [address], [place] [phone] * (ABNORMAL) Hemoglobin A1c (04/26/2025 10:51 AM EDT) Hemoglobin A1C 6.7(H) <6.5 % LAB CHEMISTRY METHOD 04/26/2025 2:56 PM EDT [facility] Mean Bld Glu Estim. 146 mg/dL LAB CHEMISTRY METHOD 04/26/2025 2:56 PM T [facility] Blood Venous blood specimen / Unknown Venipuncture / Unknown 04/26/2025 10:51 AM EDT 04/26/2025 11:42 AM EDT us Anayeli Chung MD LAB BLOOD ORDERABLES Final Re sult [facility] [address] [place] [address], [place] [phone] * Comprehensive metabolic panel (04/26/2025 10:51 AM EDT) Sodium 139 133 - 145 mmol/L LAB CHEMISTRY METHOD 04/26/2025 2:13 PM [facility] Potassium 4.3 3.5 - 5.5 mmol/L LAB CHEMISTRY METHOD 04/26/2025 2:13 PM [facility] Chloride 106 96 - 110 mmol/L LAB CHEMISTRY METHOD 04/26/2025 2:13 PM [facility] CO2 24 21 - 32 mmol/L LAB CHEMISTRY METHOD 04/26/2025 2:13 PM [facility] Anion Gap 9 3 - 11 LAB CHEMISTRY METHOD 04/26/2025 2:13 PM [facility] Glucose 86 70 - 100 mg/dL LAB CHEMISTRY METHOD 04/26/2025 2:13 PM [facility] BUN 16 5 - 25 mg/dL LAB CHEMISTRY METHOD 04/26/2025 2:13 PM [facility] Creatinine 0.83 0.50 - 1.10 mg/dL LAB CHEMISTRY METHOD 04/26/2025 2:13 PM [facility] eGFR 71 >=60 mL/min/1. 73m2 LAB CHEMISTRY METHOD 04/26/2025 2:13 PM [facility] Comment:Calculation based on the Chronic Kidney Disease Epidemiology Collaboration (CKD-EPI) equation refit without adjustment for race. BUN/Creatinine Ratio 19.3 LAB CHEMISTRY METHOD 04/26/2025 2:13 PM EDT [facility] Calcium 9.7 8.5 - 10.5 mg/dL LAB CHEMISTRY METHOD 04/26/2025 2:13 PM T [facility] AST (SGOT) 10 10 - 42 unit/L LAB CHEMISTRY METHOD 04/26/2025 2:13 PM T [facility] ALT (SGPT) 19 10 - 60 unit/L LAB CHEMISTRY METHOD 04/26/2025 2:13 PM [facility] Alkaline Phosphatase 55 42 - 121 unit/L LAB CHEMISTRY METHOD [facility]2025 2:[facility] Total Protein 7.5 6.0 - 8.0 g/dL LAB CHEMISTRY METHOD 04/26/2025 2:[facility] Albumin 4.0 3.2 - 5.0 g/dL LAB CHEMISTRY METHOD 04/26/2025 2:13 PM [facility] Total Bilirubin 0.3 0.0 - 1.4 mg/dL LAB CHEMISTRY METHOD 04/26/2025 2:13 PM EDT [facility] Blood Venous blood specimen / Unknown Venipuncture / Unknown 04/26/2025 10:51 AM EDT 04/26/2025 11:40 AM EDT us Anayeli Chung MD LAB BLOOD ORDERABLES Final Re sult [facility] [address] [place] [address], * ERI DEXA AXIAL SKELETON (06/30/2019 10:15 AM EDT) Anatomical Region Laterality Modality Mammography 06/30/2019 9:13 AM EDT Narrative 06/30/2019 10:15 AM [facility] Diagnostic Imaging Department [address] [place] [id number] Patient: SURJITSTARR CRUMINE /Age/Sex: 1945 - 73 - F Unit#: [id number] Location/Status: SPDIMAM/REG CLI [facility]em[facility] Ordering Physician: Emmanuel JARRETT MD Eri Dexa Axial Skeleton - 06/30/19955 HISTORY: The patient is a 73-year-old postmenopausal female with clinical concern for metabolic bone disease. FINDINGS: Dual energy x-ray absorptiometry of the lumbar spine and femurs is performed. The mean bone mineral density at L1-L4 is 0.997 gm/cm2 which is 84% of that of young normals and 99% of that of age matched controls. This yields a T-score of -1.5 and a Z-score of -0.1 which is diagnostic of osteopenia. The mean bone mineral density of the femurs bilaterally is 0.788 gm/cm2 which is 78% of that of young normals and 96% of that of age matched controls. This yields a T-score of -1.7 and a Z-score of -0.3 which is diagnostic of osteopenia. The T-score of the right femoral neck is -2.2 and that of the left femoral neck is -2.2 which is diagnostic of osteopenia. IMPRESSION: 1. Osteopenia. 2. FRAX analysis yields a 10-year probability of major osteoporotic fracture of 20.8% and a 10-year probability of hip fracture of 5.3%. Code 21138 Dictating Physician: MIN MARTINEZ MD Electronically Signed by: MIN MARTINEZ MD Dic Date/Time: 06/30/19 1014 Sign date/Time: 06/30/19 1015 Procedure Note Min Martinez - 10/07/2022 [facility] Diagnostic Imaging Department [address] [place] [id number] Patient: STARR FIELDSJALIL Galindo./Age/Sex: 1945 - 73 - F Unit#: [id number] Location/Status: [facility] Mnemonic/Ordering Site: [facility] Ordering Physician: Emmanuel JARRETT MD Eri Dexa Axial Skeleton - 06/30/19955 HISTORY: The patient is a 73-year-old postmenopausal female withclinical concern for metabolic bone disease. FINDINGS: Dual energy x-ray absorptiometry of the lumbar spine and femursis performed. The mean bone mineral density at L1-L4 is 0.997 gm/cm2 which is84% of that of young normals and 99% of that of age matched controls. Thisyields a T-score of -1.5 and a Z-score of -0.1 which is diagnostic of osteopenia. The mean bone mineral density of the femurs bilaterally is 0.788 gm/zc0neyet is 78% of that of young normals and 96% of that of age matched controls.This yields a T-score of -1.7 and a Z-score of -0.3 which is diagnostic of osteopenia. The T-score of the right femoral neck is -2.2 and that of theleft femoral neck is -2.2 which is diagnostic of osteopenia. IMPRESSION: 1. Osteopenia. 2. FRAX analysis yields a 10-year probability of major osteoporoticfracture of 20.8% and a 10-year probability of hip fracture of 5.3%. Code 77357 Dictating Physician: MIN MARTINEZ MD Electronically Signed by: MIN MARTINEZ MD Dic Date/Time: 06/30/19 1014 Sign date/Time: 06/30/19 1015 [facility] PROCEDURES Elsy l Result from Last 3 Months or Most Recently Relevant to Health Maintenance Insurance [employer] [place] Care Teams Radiologic Therapist Relationship Specialty Start Date End Date Denzel Bettencourt MD [address] [place] [phone] PCP - General Internal Medicine 06/12/22
--- OUTSIDE RECORDS SUMMARY | 2025-07-24 12:06 | XMS_ITS | Encounter Summary ---
Author Organization [facility] [place] Address [address] [place] [address] Care Team Providers Care Keg Header Name Role Phone Denzel Bettencourt MD Primary Care Provider [phone] Encounter Details Date Type Department Care Team (Late st Contact Info) Description 11/27/2024 Lab Requisition [facility] - Main Lab [address] [facility] [place] [address] Jared Villanueva MD [address] [place] [address], [phone] Nonrheumatic aortic (valve) stenosis Social History Tobacco [...] on file documented as of this encounter Procedures Procedure Name Priority Date/Time Associated Diagnosis Comments COMPLETE BLOOD COUNT Routine 11/27/2024 5:56 AM EST Nonrheumatic aortic (valve) stenosis BASIC METABOLIC PANEL Routine 11/27/2024 5:56 AM EST Nonrheumatic aortic (valve) stenosis documented in this encounter Results * (ABNORMAL) Basic metabolic panel (11/27/2024 5:56 AM EST) Sodium 139 133 - 145 mmol/L LAB CHEMISTRY METHOD 11/27/2024 1:48 PM [facility] Potassium 4.4 3.5 - 5.5 mmol/L LAB CHEMISTRY METHOD 11/27/2024 1:48 PM [facility] Chloride 107 96 - 110 mmol/L LAB CHEMISTRY METHOD 11/27/2024 1:48 PM [facility] CO2 26 21 - 32 mmol/L LAB CHEMISTRY METHOD 11/27/2024 1:48 PM [facility] Anion Gap 6 3 - 11 LAB CHEMISTRY METHOD 11/27/2024 1:48 PM [facility] Glucose 143(H) 70 - 100 mg/dL LAB CHEMISTRY METHOD 11/27/2024 1:48 PM [facility] BUN 13 5 - 25 mg/dL LAB CHEMISTRY METHOD 11/27/2024 1:48 PM [facility] Creatinine 0.75 0.50 - 1.10 mg/dL LAB CHEMISTRY METHOD 11/27/2024 1:48 PM [facility] eGFR 81 >=60 mL/min/1. 73m2 LAB CHEMISTRY METHOD 11/27/2024 1:48 PM [facility] Comment:Calculation based on the Chronic Kidney Disease Epidemiology Collaboration (CKD-EPI) equation refit without adjustment for race. BUN/Creatinine Ratio 17.3 LAB CHEMISTRY METHOD 11/27/2024 1:48 PM [facility] Calcium 8.6 8.5 - 10.5 mg/dL LAB CHEMISTRY METHOD 11/27/2024 1:48 PM [facility] Blood Venous blood specimen / Unknown Venipuncture / Unknown 11/27/2024 5:56 AM EST 11/27/2024 12:08 PM EST us Jared Villanueva MD LAB BLOOD ORDERABLES Final Resul t [facility] [address] [place] [address], * (ABNORMAL) Complete blood count (11/27/2024 5:56 AM EST) WBC 10.1 4.8 - 10.8 K/mcL LAB HEMETOLOGY METHOD 11/27/2024 12:53 PM [facility] RBC 2.60(L) 3.80 - 4.80 M/mcL LAB HEMETOLOGY METHOD 11/27/2024 12:53 PM [facility] Hemoglobin 7.3(L) 11.5 - 16.0 g/dL LAB HEMETOLOGY METHOD 11/27/2024 12:53 PM [facility] Hematocrit 24.0(L) 35.0 - 47.0 % LAB HEMETOLOGY METHOD 11/27/2024 12:53 PM [facility] MCV 93.4 79.0 - 98.0 FL LAB HEMETOLOGY METHOD 11/27/2024 12:53 PM [facility] MCH 28.4 27.0 - 32.0 pcg LAB HEMETOLOGY METHOD 11/27/2024 12:53 PM [facility] MCHC 30.4(L) 32.0 - 37.0 g/dL LAB HEMETOLOGY METHOD 11/27/2024 12:53 PM [facility] RDW 15.9(H) 11.0 - 15.0 % LAB HEMETOLOGY METHOD 11/27/2024 12:53 PM [facility] Platelets 591(H) 130 - 400 K/mcL LAB HEMETOLOGY METHOD 11/27/2024 12:53 PM [facility] MPV 9.8 7.0 - 11.0 FL LAB HEMETOLOGY METHOD 11/27/2024 12:53 PM EST [facility] NRBC 0.0 <1.0 % LAB HEMETOLOGY METHOD 11/27/2024 12:53 PM EST [facility] NRBC Absolute 0.00 <0.10 K/mcL LAB HEMETOLOGY METHOD 11/27/2024 12:53 PM EST [facility] Blood Venous blood specimen / Unknown Venipuncture / Unknown 11/27/2024 5:56 AM EST 11/27/2024 12:08 PM EST us Jared Villanueva MD LAB BLOOD ORDERABLES Final Resul t [facility] [address] [place] [address], documented in this encounter Visit Diagnoses Diagnosis Nonrheumatic aortic (valve) stenosis documented in this encounter Additional Health Concerns Infection Onset Date Last Indicated Resolved Time Respiratory Rule-Out 12/19/2024 12/19/2024 03 025 11:46 AM EST COVID-19 Rule-Out 12/19/2024 12/19/2024 12/19/2024 11:46 AM EST documented as of this encounter Care Teams Keg Header Relationship Specialty Start Date End Date Denzel Bettencourt MD [address] [phone] PCP - General Internal Medicine 06/12/22 documented as of this encounter
--- OUTSIDE RECORDS SUMMARY | 2025-07-24 12:06 | XMS_ITS | Encounter Summary ---
Author Organization [facility] Address [address] [place] [address] Care Team Providers Care Robotics Mechanic Name Role Phone Denzel Bettencourt MD Primary Care Provider [phone] Encounter Details Date Type Department Care Team (Latest Contact Info) Description 12/14/2024 Lab Requisition [facility] - Main Lab 299 [facility] [place] [phone] Bernardo Braden PA [address] [facility] [address] [place] [address] Mixed hyperlipidemia; Type 2 diabetes mellitus without complications (CMS/HCC V24, CMS/HCC V28); Other fatigue; Encounter for general adult medical examination with abnormal findings; Essential (primary) hypertension Social History Tobacco Use Types Packs/Day Years [...] Procedure Name Priority Date/Time Associated Diagnosis Comments SST - GOLD Routine 12/14/2024 12:00 AM EST Mixed hyperlipidemia Type 2 diabetes mellitus without complications (CMS/HCC) Other fatigue Encounter for general adult medical examination with abnormal findings Essential (primary) hypertension LIPID PANEL WITH REFLEX TO DIRECT LDL Routine 12/14/2024 12:00 AM EST Mixed hyperlipidemia Type 2 diabetes mellitus without complications (CMS/HCC) Other fatigue Encounter for general adult medical examination with abnormal findings Essential (primary) hypertension CBC WITH AUTO DIFFERENTIAL Routine 12/14/2024 12:00 AM EST Mixed hyperlipidemia Type 2 diabetes mellitus without complications (CMS/HCC) Other fatigue Encounter for general adult medical examination with abnormal findings Essential (primary) hypertension CBC AND DIFFERENTIAL Routine 12/14/2024 12:00 AM EST Mixed hyperlipidemia Type 2 diabetes mellitus without complications (CMS/HCC) Other fatigue Encounter for general adult medical examination with abnormal findings Essential (primary) hypertension THYROID STIMULATING HORMONE Routine 12/14/2024 12:00 AM EST Mixed hyperlipidemia Type 2 diabetes mellitus without complications (CMS/HCC) Other fatigue Encounter for general adult medical examination with abnormal findings Essential (primary) hypertension THYROXINE FREE Routine 12/14/2024 12:00 AM EST Mixed hyperlipidemia Type 2 diabetes mellitus without complications (CMS/HCC) Other fatigue Encounter for general adult medical examination with abnormal findings Essential (primary) hypertension HEMOGLOBIN A1C Routine 12/14/2024 12:00 AM EST Mixed hyperlipidemia Type 2 diabetes mellitus without complications (CMS/HCC) Other fatigue Encounter for general adult medical examination with abnormal findings Essential (primary) hypertension COMPREHENSIVE METABOLIC PANEL Routine 12/14/2024 12:00 AM EST Mixed hyperlipidemia Type 2 diabetes mellitus without complications (CMS/HCC) Other fatigue Encounter for general adult medical examination with abnormal findings Essential (primary) hypertension documented in this encounter Results * (ABNORMAL) CBC auto differential (12/14/2024 12:00 AM EST) [facility] WBC 10.0 4.8 - 10.8 K/[facility] LAB HEMETOLOGY METHOD 12/14/2024 7:48 PM EST [facility] RBC 4.10 3.80 - 4.80 M/mcL LAB HEMETOLOGY METHOD 12/14/2024 7:48 PM [facility] Hemoglobin 10.7(L) 11.5 - 16.0 g/dL LAB HEMETOLOGY METHOD 12/14/2024 7:48 PM [facility] Hematocrit 35.9 35.0 - 47.0 % LAB HEMETOLOGY METHOD 12/14/2024 7:48 PM [facility] MCV 88.6 79.0 - 98.0 FL LAB HEMETOLOGY METHOD 12/14/2024 7:48 PM [facility] MCH 26.4(L) 27.0 - 32.0 pcg LAB HEMETOLOGY METHOD 12/14/2024 7:48 PM [facility] MCHC 29.8(L) 32.0 - 37.0 g/dL LAB HEMETOLOGY METHOD 12/14/2024 7:48 PM [facility] RDW 15.0 11.0 - 15.0 % LAB HEMETOLOGY METHOD 12/14/2024 7:48 PM [facility] Platelets 359 130 - 400 K/mcL LAB HEMETOLOGY METHOD 12/14/2024 7:48 PM [facility] MPV 11.8(H) 7.0 - 11.0 FL LAB HEMETOLOGY METHOD 12/14/2024 7:48 PM [facility] NRBC 0.0 <1.0 % LAB HEMETOLOGY METHOD 12/14/2024 7:48 PM [facility] NRBC Absolute 0.00 <0.10 K/mcL LAB HEMETOLOGY METHOD 12/14/2024 7:48 PM [facility] Neutrophils Relative 62.6 % LAB HEMETOLOGY METHOD 12/14/2024 7:48 PM [facility] Lymphocytes Relative 22.5 % LAB HEMETOLOGY METHOD 12/14/2024 7:48 PM EST [facility] Monocytes Relative 9.3 % LAB HEMETOLOGY METHOD 12/14/2024 7:48 PM [facility] Eosinophils Relative 4.6 % LAB HEMETOLOGY METHOD 12/14/2024 7:48 PM [facility] Basophils Relative 0.6 % LAB HEMETOLOGY METHOD 12/14/2024 7:48 PM [facility] Immature Granulocytes Relative 0.4 % LAB HEMETOLOGY METHOD 12/14/2024 7:48 PM [facility] Neutrophils Absolute 6.24 1.50 - 7.00 K/mcL LAB HEMETOLOGY METHOD 12/14/2024 7:48 PM [facility] Lymphocytes Absolute 2.25 1.00 - 5.00 K/mcL LAB HEMETOLOGY METHOD 12/14/2024 7:48 PM [facility] Monocytes Absolute 0.93 0.20 - 1.00 K/mcL LAB HEMETOLOGY METHOD 12/14/2024 7:48 PM [facility] Eosinophils Absolute 0.46 0.00 - 0.50 K/mcL LAB HEMETOLOGY METHOD 12/14/2024 7:48 PM [facility] Basophils Absolute 0.06 0.00 - 0.20 K/mcL LAB HEMETOLOGY METHOD 12/14/2024 7:48 PM [facility] Immature Granulocytes Absolute 0.04(H) 0.00 - 0.03 K/mcL LAB HEMETOLOGY METHOD 12/14/2024 7:48 PM [facility] Blood Venous blood specimen / Unknown 12/14/2024 12/14/2024 7:14 PM EST us Bernardo MARCELINO LAB BLOOD ORDERABLES Final Res ult [facility] [address] [place] [address], [place] [phone] * SST tube (12/14/2024 12:00 AM EST) Pathologist [facility] Extra Tube Hold for add-ons. 12/14/2024 9:01 PM EST [facility] Comment:Auto resulted. Blood Venous blood specimen / Unknown 12/14/2024 12/14/2024 7:14 PM EST Bernardo MARCELINO LAB BLOOD ORDERABLES Final Res ult [facility] [address] [place] [address], [place] [phone] * Thyroid stimulating hormone (12/14/2024 12:00 AM EST) [facility] TSH 2.10 0.40 - 4.00 mcIU/mL LAB CHEMISTRY METHOD 12/14/2024 9:19 PM EST [facility] Blood Venous blood specimen / Unknown 12/14/2024 12/14/2024 7:14 PM EST Bernardo MARCELINO LAB BLOOD ORDERABLES Final Res ult [facility] [address] [place] [address], [place] [phone] * Hemoglobin A1c (12/14/2024 12:00 AM EST) [facility] Hemoglobin A1C 5.7 <6.5 % LAB CHEMISTRY METHOD 12/18/2024 2:00 PM EST [facility] Mean Bld Glu Estim. 117 mg/dL LAB CHEMISTRY METHOD 12/18/2024 2:00 PM [facility] Blood Venous blood specimen / Unknown 12/14/2024 12/14/2024 7:14 PM EST Bernardo MARCELINO LAB BLOOD ORDERABLES Final Res ult [facility] [address] [place] [address], [place] [phone] * Thyroxine free (12/14/2024 12:00 AM EST) Free T4 1.57 0.70 - 1.80 ng/dL LAB CHEMISTRY METHOD 12/14/2024 9:19 PM [facility] Blood Venous blood specimen / Unknown 12/14/2024 12/14/2024 7:14 PM EST Bernardo MARCELINO LAB BLOOD ORDERABLES Final Res ult Performing Organization Address [facility]/ZIP Co de Phone Number [facility] [address] [place] [address], [place] [phone] * Lipid panel with reflex to direct LDL (12/14/2024 12:00 AM EST) [facility] Cholesterol 134 0 - 200 mg/dL LAB CHEMISTRY METHOD 12/14/2024 8:01 PM [facility] Triglycerides 122 0 - 150 mg/dL LAB CHEMISTRY METHOD 12/14/2024 8:01 PM [facility] HDL 53 >=40 mg/dL LAB CHEMISTRY METHOD 12/14/2024 8:01 PM [facility] LDL Calculated 57 0 - 100 mg/dL LAB CHEMISTRY METHOD 12/14/2024 8:01 PM [facility] VLDL Cholesterol Jalil 24.4 mg/dL LAB CHEMISTRY METHOD 12/14/2024 8:01 PM [facility] Non HDL Chol. (LDL+VLDL) 81 <145 mg/dL LAB CHEMISTRY METHOD 12/14/2024 8:01 PM [facility] Chol/HDL Ratio 2.5 0.0 - 4.4 LAB CHEMISTRY METHOD 12/14/2024 8:01 PM [facility] Blood Venous blood specimen / Unknown 12/14/2024 12/14/2024 7:14 PM EST us Bernardo MARCELINO LAB BLOOD ORDERABLES Final Res ult [facility] [address] [place] [address], [place] [phone] * Comprehensive metabolic panel (12/14/2024 12:00 AM EST) Sodium 142 133 - 145 mmol/L LAB CHEMISTRY METHOD 12/14/2024 8:01 PM [facility] Potassium 4.1 3.5 - 5.5 mmol/L LAB CHEMISTRY METHOD 12/14/2024 8:01 PM [facility] Chloride 107 96 - 110 mmol/L LAB CHEMISTRY METHOD 12/14/2024 8:01 PM [facility] CO2 25 21 - 32 mmol/L LAB CHEMISTRY METHOD 12/14/2024 8:01 PM [facility] Anion Gap 10 3 - 11 LAB CHEMISTRY METHOD 12/14/2024 8:01 PM [facility] Glucose 94 70 - 100 mg/dL LAB CHEMISTRY METHOD 12/14/2024 8:01 PM [facility] BUN 14 5 - 25 mg/dL LAB CHEMISTRY METHOD 12/14/2024 8:01 PM [facility] Creatinine 0.82 0.50 - 1.10 mg/dL LAB CHEMISTRY METHOD 12/14/2024 8:01 PM [facility] eGFR 73 >=60 mL/min/1. 73m2 LAB CHEMISTRY METHOD 12/14/2024 8:01 PM [facility] Comment:Calculation based on the Chronic Kidney Disease Epidemiology Collaboration (CKD-EPI) equation refit without adjustment for race. BUN/Creatinine Ratio 17.1 LAB CHEMISTRY METHOD 12/14/2024 8:01 PM [facility] Calcium 9.7 8.5 - 10.5 mg/dL LAB CHEMISTRY METHOD 12/14/2024 8:01 PM [facility] AST (SGOT) 22 10 - 42 unit/L LAB CHEMISTRY METHOD 12/14/2024 8:01 PM [facility] ALT (SGPT) 26 10 - 60 unit/L LAB CHEMISTRY METHOD 12/14/2024 8:01 PM [facility] Alkaline Phosphatase 66 42 - 121 unit/L LAB CHEMISTRY METHOD 12/14/2024 8:01 PM [facility] Total Protein 7.6 6.0 - 8.0 g/dL LAB CHEMISTRY METHOD 12/14/2024 8:01 PM [facility] Albumin 3.7 3.2 - 5.0 g/dL LAB CHEMISTRY METHOD 12/14/2024 8:01 PM [facility] Total Bilirubin 0.2 0.0 - 1.4 mg/dL LAB CHEMISTRY METHOD 12/14/2024 8:01 PM [facility] Blood Venous blood specimen / Unknown 12/14/2024 12/14/2024 7:14 PM EST us Bernardo MARCELINO LAB BLOOD ORDERABLES Final Res ult [facility] [address] [place] [address], documented in this encounter Visit Diagnoses Diagnosis Mixed hyperlipidemia Type 2 diabetes mellitus without complications (CMS/HCC V24, CMS/HCC V28) Other fatigue Encounter for general adult medical examination with abnormal findings Essential (primary) hypertension Unspecified essential hypertension documented in this encounter Additional Health Concerns Infection Onset Date Last Indicated Resolved Time Respiratory Rule-Out 12/19/2024 12/19/2024 025 11:46 AM EST COVID-19 Rule-Out 12/19/2024 12/19/2024 12/19/2024 11:46 AM EST documented as of this encounter Care Teams Robotics Mechanic Relationship Specialty Start Date End Date Denzel Bettencourt MD [address] [place] [phone] PCP - General Internal Medicine 06/12/22 documented as of this encounter
--- OUTSIDE RECORDS SUMMARY | 2025-07-24 12:07 | XMS_ITS | Encounter Summary ---
Author Organization [facility] Address [address] [place] [address] Care Team Providers Care Fitness Sales Consultant Name Role Phone Denzel Bettencourt MD Primary Care Provider [phone] Encounter Details Date Type Department Care Team (Late st Contact Info) Description 11/23/2024 Lab Requisition [facility] - Main Lab [address] [facility] [place] [address] Jared Villanueva MD [address] [place] [address], [phone] Nonrheumatic aortic (valve) stenosis Social History Tobacco [...] Associated Diagnosis Comments COMPLETE BLOOD COUNT Routine 11/23/2024 5:37 AM EST Nonrheumatic aortic (valve) stenosis BASIC METABOLIC PANEL Routine 11/23/2024 5:37 AM EST Nonrheumatic aortic (valve) stenosis documented in this encounter Results * Basic metabolic panel (11/23/2024 5:37 AM EST) Sodium 141 133 - 145 mmol/L LAB CHEMISTRY METHOD 11/23/2024 11:32 AM [facility] Potassium 4.4 3.5 - 5.5 mmol/L LAB CHEMISTRY METHOD 11/23/2024 11:32 AM [facility] Chloride 107 96 - 110 mmol/L LAB CHEMISTRY METHOD 11/23/2024 11:32 AM [facility] CO2 26 21 - 32 mmol/L LAB CHEMISTRY METHOD 11/23/2024 11:32 AM [facility] Anion Gap 8 3 - 11 LAB CHEMISTRY METHOD 11/23/2024 11:32 AM [facility] Glucose 88 70 - 100 mg/dL LAB CHEMISTRY METHOD 11/23/2024 11:32 AM [facility] BUN 19 5 - 25 mg/dL LAB CHEMISTRY METHOD 11/23/2024 11:32 AM [facility] Creatinine 0.83 0.50 - 1.10 mg/dL LAB CHEMISTRY METHOD 11/23/2024 11:32 AM [facility] eGFR 72 >=60 mL/min/1. 73m2 LAB CHEMISTRY METHOD 11/23/2024 11:32 AM [facility] Comment:Calculation based on the Chronic Kidney Disease Epidemiology Collaboration (CKD-EPI) equation refit without adjustment for race. BUN/Creatinine Ratio 22.9 LAB CHEMISTRY METHOD 11/23/2024 11:32 AM [facility] Calcium 8.6 8.5 - 10.5 mg/dL LAB CHEMISTRY METHOD 11/23/2024 11:32 AM [facility] Blood Venous blood specimen / Unknown Venipuncture / Unknown 11/23/2024 5:37 AM EST 11/23/2024 10:06 AM EST Jared Villanueva MD LAB BLOOD ORDERABLES Final Resul t [facility] [address] [place] [address], * (ABNORMAL) Complete blood count (11/23/2024 5:37 AM EST) WBC 15.0(H) 4.8 - 10.8 K/mcL LAB HEMETOLOGY METHOD 11/23/2024 11:21 AM [facility] RBC 2.80(L) 3.80 - 4.80 M/mcL LAB HEMETOLOGY METHOD 11/23/2024 11:21 AM [facility] Hemoglobin 7.8(L) 11.5 - 16.0 g/dL LAB HEMETOLOGY METHOD 11/23/2024 11:21 AM [facility] Hematocrit 25.5(L) 35.0 - 47.0 % LAB HEMETOLOGY METHOD 11/23/2024 11:21 AM [facility] MCV 92.4 79.0 - 98.0 FL LAB HEMETOLOGY METHOD 11/23/2024 11:21 AM [facility] MCH 28.3 27.0 - 32.0 pcg LAB HEMETOLOGY METHOD 11/23/2024 11:21 AM [facility] MCHC 30.6(L) 32.0 - 37.0 g/dL LAB HEMETOLOGY METHOD 11/23/2024 11:21 AM [facility] RDW 16.2(H) 11.0 - 15.0 % LAB HEMETOLOGY METHOD 11/23/2024 11:21 AM [facility] Platelets 482(H) 130 - 400 K/mcL LAB HEMETOLOGY METHOD 11/23/2024 11:21 AM [facility] MPV 10.1 7.0 - 11.0 FL LAB HEMETOLOGY METHOD 11/23/2024 11:[address] [facility] NRBC 0.0 <1.0 % LAB HEMETOLOGY METHOD 11/23/2024 11:[address] [facility] NRBC Absolute 0.00 <0.10 K/mcL LAB HEMETOLOGY METHOD 11/23/2024 11:[address] [facility] Blood Venous blood specimen / Unknown Venipuncture / Unknown 11/23/2024 5:37 AM EST 11/23/2024 10:06 AM EST us Jared Villanueva MD LAB BLOOD ORDERABLES Final Resul t [facility] [address] [place] [address], documented in this encounter Visit Diagnoses Diagnosis Nonrheumatic aortic (valve) stenosis documented in this encounter Additional Health Concerns Infection Onset Date Last Indicated Resolved Time Respiratory Rule-Out 12/19/2024 12/19/2024 025 11:46 AM EST COVID-19 Rule-Out 12/19/2024 12/19/2024 12/19/2024 11:46 AM EST documented as of this encounter Care Teams Fitness Sales Consultant Relationship Specialty Start Date End Date Denzel Bettencourt MD [address] [phone] PCP - General Internal Medicine 06/12/22 documented as of this encounter
--- OUTSIDE RECORDS SUMMARY | 2025-07-24 12:07 | XMS_ITS | Encounter Summary ---
Author Organization [facility] Address [address] [place] [address] Care Team Providers Care Warehouse Processor Name Role Phone Dnezel Bettencuort MD Primary Care Provider [phone] Encounter Details Date Type Department Care Team (Late st Contact Info) Description 04/23/[address] [facility] - Main Lab [address] [place] [address] Anayeli Chung MD [address] [place] [address] [place] [id number] Type 2 diabetes mellitus without complications (CMS/HCC V24, CMS/[facility] V28); Essential (primary) hypertension; Pure hypercholesterolemia, unspecified Social History Tobacco Use Types Packs/Day Years [...] as of this encounter Plan of Treatment Scheduled Orders Name Type Priority Associated Diagnoses Orde r Schedule Comprehensive metabolic panel Lab Routine Type 2 diabetes mellitus without complications (CMS/HCC V24, CMS/HCC V28) Essential (primary) hypertension Ordered: 04/23/2025 CBC and differential Lab Routine Type 2 diabetes mellitus without complications (CMS/HCC V24, CMS/HCC V28) Ordered: 04/23/2025 Lipid panel with reflex to direct LDL Lab Routine Pure hypercholesterolemia, unspecified Ordered: 04/23/2025 Microalbumin creatinine urine ratio Lab Routine Type 2 diabetes mellitus without complications ([facility] [place]24, [facility] [place] V28) Ordered: 04/23/2025 Hemoglobin A1c Lab Routine Type 2 diabetes mellitus without complications ([facility] [place]24, [facility] [place] V28) Ordered: 04/23/2025 documented as of this encounter Visit Diagnoses Diagnosis Type 2 diabetes mellitus without complications ([facility] [place] V24, [facility] [place] V28) Essential (primary) hypertension Unspecified essential hypertension Pure hypercholesterolemia, unspecified documented in this encounter Care Teams Warehouse Processor Relationship Specialty Start Date End Date Denzel Bettencourt MD [address] [place] [phone] PCP - General Internal Medicine 06/12/22 documented as of this encounter
[2025-07-24 13:38] LABS: Alanine Aminotransferase 17 U/L (0-31); Albumin Level 4.6 g/dL (3.5-5.0); Alkaline Phosphatase 51 U/L (39-117); Anion Gap 11 (12-20); Aspartate Amino Transferase 22 U/L (5-31); Blood Urea Nitrogen 20 mg/dL (9-16); Calcium 9.7 mg/dL (8.4-10.2); Carbon Dioxide 28 mmol/L (22-29); Chloride 106 mmol/L (96-108); Estimated Glomerular Filt Rate > 60; Potassium 4.4 mmol/L (3.3-5.1); Sodium 141 mmol/L (135-145); Total Protein 7.7 g/dL (6.5-8.0)
== END 2025-07-24 10:10 | disposition home or self-care (01) ==
LOC: HO.10HDL 10:09
PROVIDERS: Visit Provider Internal Medicine
DX: E11.9 Type 2 diabetes mellitus without complications (principal); E78.00 Pure hypercholesterolemia, unspecified; I10 Essential (primary) hypertension; R80.8 Other proteinuria
CPT/HCPCS: 36415; 80053; 83036